=== PATIENT | male | born 1955 | race Caucasian/White ===

== ENCOUNTER → 2016-12-26 | Outpatient (CLI) | payer OTHER ==
[~2016-12-26] MED LIST: ATORVASTATIN CA20 MG PO; LISINOPRIL-HCT1 EAC3 PO; LO-DOSE ASPIRIN81 M2 PO
== END | disposition home or self-care (01) ==
LOC: CDC 14:33
DX: K40.90 Unilateral inguinal hernia, without obstruction or gangrene, not specified as recurrent (principal)
CPT/HCPCS: 93000

== ENCOUNTER 2017-01-03 10:12 | Day surgery (SDC) | payer OTHER ==
[~2017-01-03] VITALS: Ht 185.4 cm; Wt 88.5 kg
[2017-01-03 11:43] VITALS: BP 134/74
[2017-01-03] MEDS ORDERED: PERCOCET 5/31 TABLET PO (14:42)
[2017-01-03 15:20] VITALS: BP 130/70
[2017-01-03 16:16] VITALS: BP 130/80
== END 2017-01-03 16:23 | disposition home or self-care (01) ==
LOC: SDC
PROC: 0YU60JZ Supplement Left Inguinal Region with Synthetic Substitute, Open Approach (ICD-10-PCS; principal; 2017-01-03)
DX: K40.90 Unilateral inguinal hernia, without obstruction or gangrene, not specified as recurrent (principal); X50.0XXA Overexertion from strenuous movement or load, initial encounter; Y99.0 Civilian activity done for income or pay; I10 Essential (primary) hypertension; E78.5 Hyperlipidemia, unspecified; R73.03 Prediabetes; Z79.82 Long term (current) use of aspirin; Z82.49 Family history of ischemic heart disease and other diseases of the circulatory system; Z83.3 Family history of diabetes mellitus; Z80.1 Family history of malignant neoplasm of trachea, bronchus and lung; F17.210 Nicotine dependence, cigarettes, uncomplicated
CPT/HCPCS: C1781; J0690; J2250; J2405; J3010